=== PATIENT | female | born 1960 | race Caucasian/White ===

== ENCOUNTER 2020-11-10 06:58 | Day surgery (SDC) | payer OTHER, SELFPAY ==
[2020-11-03 20:05] VITALS: BMI 28.0
--- NOTE | 2020-11-09 12:50 | HO.ANESPROP2 ---
Documented by User: Renetta Hamilton 11/09/20 12:50 HPI - Anesthesia Eval Consult details Narrative: 60yo F for Upper Endoscopy and Colonoscopy [facility] Past Medical History Medical History (Updated 11/10/20 @ 08:01 by Julissa Barrientos) Anxiety Depression Fluid retention GERD (gastroesophageal reflux disease) Hiatal hernia Hyperlipidemia Panic attacks Surgical History Surgical History History of colonoscopy History of dilatation and curettage Hx of appendectomy Hx of cholecystectomy S/P partial hysterectomy Social History Social History Smoking Status: Former smoker Smoked in Last 30 Days: No Smoking Quit Date: 2015 Use of substances other than those prescribed or required for medical reasons: No Advance Directives: No Advance Directives Information Provided: No Advance Directives on File: No Recently lost weight without trying: No Meds Allergies Allergy/AdvReac Type Severity Reaction Status Date / Time No Known Allergies Allergy Verified 11/03/20 19:54 Home Medications Medication Instructions Recorded Confirmed Type alprazolam 1 mg PO BEDTIME PRN 11/03/20 11/10/20 History hydrochlorothiazide 25 mg PO DAILY PRN 11/03/20 11/03/20 History simvastatin 20 mg PO BEDTIME 11/03/20 11/03/20 History Exam Exam Date and Time: November 09, 2020 1250 Height,Weight and Vital Signs: Height 5 ft 7 in Weight 81.193 kg Assessment and Plan Assessment Anesthesia Assessment: Chart Reviewed Documented by User: Julissa Barrientos 11/10/20 08:03 [facility] Past Medical History Medical History (Updated 11/10/20 @ 08:01 by Julissa Barrientos) Anxiety Depression Fluid retention GERD (gastroesophageal reflux disease) Hiatal hernia Hyperlipidemia Panic attacks Family History Family history of problems with anesthesia: No Surgical History Surgical History History of colonoscopy History of dilatation and curettage Hx of appendectomy Hx of cholecystectomy S/P partial hysterectomy History of Problems with Anesthesia: No Social History Social History Smoking Status: Former smoker Smoked in Last 30 Days: No Smoking Quit Date: 2015 Use of substances other than those prescribed or required for medical reasons: No Advance Directives: No Advance Directives Information Provided: No Advance Directives on File: No Recently lost weight without trying: No Meds Allergies Allergy/AdvReac Type Severity Reaction Status Date / Time No Known Allergies Allergy Verified 11/03/20 19:54 Home Medications Medication Instructions Recorded Confirmed Type alprazolam 1 mg PO BEDTIME PRN 11/03/20 11/10/20 History hydrochlorothiazide 25 mg PO DAILY PRN 11/03/20 11/03/20 History simvastatin 20 mg PO BEDTIME 11/03/20 11/03/20 History Exam Height,Weight and Vital Signs: Vital Signs Temp Pulse Resp BP Pulse Ox 11/10/20 07:13 97.9 F 76 16 124/80 98 Airway Mallampati Class: II TM Dist: >3cm Neck ROM: Full Heart: RRR Lungs: CTAB Assessment and Plan Assessment Anesthesia Assessment: Anesthesia Plan Discussed and Chart Reviewed Final Anesthetic Review NPO: Yes ASA Class: II Final Preanesthetic Review: No Changes in Pt Med Stat, Meds/Allgs Chart Reviewed, Consent Obtained/Reviewed and Anes Risks/Benef Reviewed Patient Risk: Low Procedure Risk: Low Assessment/Block/Sedation in SS: Assess/Block/Sedation-SS Anesthetic Plan Anesthetic Plan: MAC: Disposition: Standard PACU
[2020-11-10 07:13] VITALS: BP 124/80; PULSE 76; RESP 16; TEMP 36.6; O2SAT 98
[2020-11-10] MEDS: Lactated Ringers 1,000 ML 100 ML IVCONT (07:33)
--- NOTE | 2020-11-10 08:08 | MHC.SHP ---
Pre-Procedural Eval Section B Chief Complaint: refulx disease,screening Details of Present Illness: gerd, hx polyps Relevant Family History (Specify if Yes): No Relevant Social History: None Present Medications: see Short Stay Collaborative assessment Medical History: No relevant PMH History of Previous Operations: No relevant previous surgery Allergies: Allergies Allergy/AdvReac Type Severity Reaction Status Date / Time No Known Allergies Allergy Verified 11/03/20 19:54 Review of Systems Sugical H&P ROS: Negative: Constitution, Cardiovascular, Respiratory, Neurological, Psychiatric, Hem-Onc, Allergic/Immunologic, Gastrointestinal, Genitourinary, Musculoskeletal, Integumentary, Endocrine and Eyes/Ears/Nose/Throat Exam Surgical H&P Exam: Normal: HEENT, Normal: Heart, Normal: Lungs, Normal: Extremities, Normal: Abdomen, Normal: Skin and Normal: Neurological Plan Diagnosis/Plan: Unchanged I have reviewed the history and physical and performed a pertinent physical examination on my patient. No changes have occurred unless specified.
[2020-11-10 09:00] VITALS: BP 102/68; PULSE 69; RESP 14; TEMP 36.5; O2SAT 96
--- NOTE | 2020-11-10 09:05 | PM.OP ---
Brief Operative Note Date of Service: 11/10/20 Pre-op diagnosis: hx polyps,gerd Post-op diagnosis: same (colon polyps) Procedure: egd/colon Surgeon: Mark Anthony Nieto Anesthesia: MAC Estimated blood loss (mL): 5 Pathology: other (bx's antrum, egj, polyps 70cm, rectum) Condition: stable Disposition: PACU
[2020-11-10 09:15] VITALS: BP 107/66; PULSE 72; RESP 16; O2SAT 98
--- NOTE | 2020-11-10 10:14 | HO.POSTANES ---
Post Anesthesia Evaluation Post Anesthesia Evaluation Vital Signs: Vital Signs Temp Pulse Resp BP Pulse Ox 11/10/20 09:15 72 16 107/66 98 11/10/20 09:00 97.7 F 69 14 102/68 96 11/10/20 07:13 97.9 F 76 16 124/80 98 Anesthesia: Monitored Mental Status: Awake Pain Control: Satisfactory Nausea/Vomiting: None Hydration: Adequate Anesthesia-Related Issues: No Anes. Related Issues
--- NOTE | 2020-11-10 15:19 | OP_ITS ---
SURGEON: Mark Anthony Nieto MD INDICATIONS: 1. Gastroesophageal reflux disease. 2. Personal history of colon polyps with prior examination in 2018 showing 4 tubular adenomas, 3-year colonoscopy interval required. PREOPERATIVE DIAGNOSIS: POSTOPERATIVE DIAGNOSIS: PROCEDURE PERFORMED: ESTIMATED BLOOD LOSS: COMPLICATIONS: ANESTHESIA: Medications, monitored anesthesia care. ASSISTANTS: SPECIMENS: PROCEDURES PERFORMED: 1. Upper endoscopy with biopsy. 2. Colonoscopy to the terminal ileum with snare polypectomy. DESCRIPTION OF PROCEDURE: History and physical was performed. The risks and benefits of the procedure were explained to the patient. Informed consent was obtained. The patient was placed in left lateral decubitus position. A digital rectal exam was performed prior to the colonoscopy. The Olympus video gastroscope was introduced into the esophagus, stomach, and duodenum. Examination was performed and the scope was removed. She was then positioned for colonoscopy. A digital rectal exam was performed and was found to be normal. The Olympus pediatric video colonoscope was then introduced into the rectum and advanced to the cecum without difficulty. Abdominal wall pressure was used to assist in advancement of the scope due to looping in the sigmoid. The cecum was identified by transillumination, palpation, and identification of ileocecal valve. Examination was performed. The scope was removed. She tolerated both procedures well and returned to recovery room in stable condition. FINDINGS: UPPER ENDOSCOPY: 1. Esophagus: The esophagus was normal. There was no esophagitis. The EG junction was slightly irregular. 2. Stomach: Stomach showed no evidence of masses, ulcers, or polyps. 3. Duodenum: The bulb and second portion were normal. Biopsies were obtained from the antrum and from EG junction. COLONOSCOPY: The terminal ileum was examined and appeared normal. The visualized colonic mucosa was normal. Quality of the prep was good. Two polyps were identified and removed with snare, both measured less than 10 mm. These were located at 70 cm and in the rectum. There was mild diverticulosis in the sigmoid with diverticulosis scattered in the remainder of the colon. Retroflexed examination was normal. IMPRESSION: 1. Gastroesophageal reflux disease. 2. Colon polyps. RECOMMENDATIONS: Follow up biopsy results. MD SHON Mae/DANNY / [id number] MTDD
== END 2020-11-10 10:00 | disposition home or self-care (01) ==
PROVIDERS: PCP Nurse Practitioner Adult Health; Visit Provider Internal Medicine Gastroenterology
PROC: (CPT 45385; principal; 2020-11-10 08:10)
DX: D12.4 Benign neoplasm of descending colon (principal); K62.1 Rectal polyp; K57.30 Diverticulosis of large intestine without perforation or abscess without bleeding; K56.2 Volvulus; K21.9 Gastro-esophageal reflux disease without esophagitis; Z86.010 Personal history of colon polyps; Z79.899 Other long term (current) drug therapy
CPT/HCPCS: 45385; 43239; 88305; 88342